=== PATIENT | female | born 2000 | race Hispanic/Latino ===

== ENCOUNTER 2021-02-01 21:18 | Emergency (ER) | payer OTHER ==
[~2021-02-01] VITALS: Ht 162.6 cm; Wt 104.8 kg
[2021-02-01] MEDS ORDERED: NAPROSYN500 MG PO (23:19)
[2021-02-01 23:24] VITALS: BP 137/69
== END 2021-02-01 23:53 | disposition home or self-care (01) ==
LOC: FSED 23:52
DX: R30.0 Dysuria (principal); R10.30 Lower abdominal pain, unspecified
CPT/HCPCS: 81003; 81025; 99283

== ENCOUNTER 2021-03-26 19:56 | Emergency (ER) | payer OTHER ==
[~2021-03-26] VITALS: Ht 162.6 cm; Wt 104.3 kg
[~2021-03-26 19:56] MED LIST: NAPROSYN500 MG PO
[2021-03-26] MEDS ORDERED: IBUPROFEN600 MG PO (21:44)
== END 2021-03-26 22:00 | disposition home or self-care (01) ==
LOC: FSED 20:25
DX: R10.30 Lower abdominal pain, unspecified (principal)
CPT/HCPCS: 74018; 81003; 81025; 99283

== ENCOUNTER 2023-05-17 18:06 | Emergency (ER) | payer SELFPAY ==
[~2023-05-17] VITALS: Ht 162.6 cm; Wt 104.3 kg
[~2023-05-17 18:06] MED LIST changes: +IBUPROFEN600 MG PO
[2023-05-17] MEDS ORDERED: DIPHENHYDRAMINE HCL INJ 50 MG/ML VIAL IV STA (18:24)
[2023-05-17] MEDS ORDERED: FAMOTIDINE 20 MG/2 ML VIAL IV STA (18:24)
[2023-05-17] MEDS ORDERED: METHYLPREDNISOLONE SOD SUCC 125 MG/2ML VIAL IV STA (18:24)
[2023-05-17] MEDS ORDERED: FLUORESCEIN SOD(OPTH) 1 MG STRP OP STA (18:28)
[2023-05-17] MEDS ORDERED: TETRACAINE HCL 0.5% OPTH SOLN 4 ML BTL ONE (18:45)
[2023-05-17] MEDS ORDERED: TETRACAINE HCL 0.5% OPTH SOLN 4 ML BTL OP ONE (19:00)
[2023-05-17] MEDS ORDERED: EPINEPHRIN0.15 MG/01 IM (19:26)
[2023-05-17] MEDS ORDERED: PEPCID20 MG PO (19:26)
[2023-05-17] MEDS ORDERED: PREDNISONE20 MG PO (19:26)
[2023-05-17 19:32] VITALS: BP 129/86; PULSE 80; RESP 16; O2SAT 100
== END 2023-05-17 19:34 | disposition home or self-care (01) ==
LOC: ER 18:12
DX: H10.12 Acute atopic conjunctivitis, left eye (principal); J31.0 Chronic rhinitis
CPT/HCPCS: 99283; J1200; J2930

== ENCOUNTER 2024-05-14 16:05 | Emergency (ER) | payer SELFPAY ==
[~2024-05-14] VITALS: Ht 162.6 cm; Wt 81.6 kg
[~2024-05-14 16:05] MED LIST changes: +EPINEPHRIN0.15 MG/01 IM; +PEPCID20 MG PO; +PREDNISONE20 MG PO
[2024-05-14 16:15] VITALS: TEMP 98.7
[2024-05-14 16:29] LABS: BASOPHILS % 0.6 % (0.0-1.0); EOSINOPHILS # (AUTO) 0.3 (0.0-0.4); EOSINOPHILS % 4.7 % (0.0-6.0); HEMATOCRIT 45.3 % (34.2-44.1); HEMOGLOBIN 14.8 g/dL (12.0-16.0); LYMPHOCYTES # (AUTO) 2.3 (1.0-3.2); LYMPHOCYTES % 36.5 % (18.0-39.1); MEAN CORPUSCULAR HEMOGLOBIN 30.3 pg (28-32); MEAN CORPUSCULAR HGB CONC 32.7 g/dL (31-35); MEAN CORPUSCULAR VOLUME 92.8 fL (81-99); MONOCYTES # (AUTO) 0.5 (0.2-0.8); MONOCYTES % 7.3 % (4.4-11.3); NEUTROPHILS # (AUTO) 3.2 (2.1-6.9); NEUTROPHILS % 50.7 % (38.7-80.0); PLATELET COUNT 197 x10e3/uL (140-360); RED BLOOD COUNT 4.88 x10e6/uL (3.6-5.1); RED CELL DISTRIBUTION WIDTH 11.9 % (11.7-14.4)
[2024-05-14] MEDS: ONDANSETRON HCL INJ 2MG/ML 2ML 2 MG/ML VIAL IV PRN (16:35)
[2024-05-14] MEDS: DICYCLOMINE HCL 20 MG/2 ML VIAL IM ONE (16:35)
[2024-05-14] MEDS: SODIUM CHLORIDE 0.9% 1000ML 1,000 ML IV STA (16:36)
[2024-05-14 16:48] LABS: ALBUMIN 4.3 g/dL (3.5-5.0); ALBUMIN/GLOBULIN RATIO 1.1 (0.8-2.0); ANION GAP 15.5 mmol/L (8-16); BILIRUBIN,TOTAL 0.9 mg/dL (0.2-1.2); CALCIUM 9.1 mg/dL (8.4-10.2); CREATININE, SERUM 0.87 mg/dL (0.57-1.11); POTASSIUM 3.5 mmol/L (3.5-5.1); TOTAL PROTEIN 8.2 g/dL (6.5-8.1)
[2024-05-14 17:02] LABS: BILIRUBIN,URINE NEGATIVE (NEGATIVE); CLARITY,URINE CLEAR (CLEAR); COLOR,URINE YELLOW (YELLOW); GLUCOSE, URINE NEGATIVE (NEGATIVE); KETONES,URINE NEGATIVE (NEGATIVE); LEUKOCYTE ESTERASE ,URINE NEGATIVE (NEGATIVE); NITRITE,URINE NEGATIVE (NEGATIVE); PH,URINE 6 (5 - 7); PROTEIN,URINE DIPSTICK NEGATIVE (NEGATIVE); URINE UROBILINOGEN 0.2 mg/dL (0.2 - 1)
[2024-05-14 17:04] LABS: WBC,URINE (MAN) 0-5 /HPF (0-5)
[2024-05-14 17:05] LABS: BACTERIA,URINE MANY /HPF; EPITHELIAL CELLS,URINE MANY /LPF; MUCUS,URINE FEW (RARE)
[2024-05-14] MEDS: KETOROLAC TROMETHAMINE 30 MG/ML VIAL IV STA (18:01)
[2024-05-14 18:05] VITALS: PULSE 90; RESP 16; O2SAT 97
[2024-05-14] MEDS ORDERED: OMEPRAZOLE40 MG PO (18:05)
[2024-05-14] MEDS ORDERED: ONDANSETRON ODT4 MG PO (18:05)
[2024-05-14] MEDS ORDERED: DICYCLOMINE HCL20 MG PO (18:05)
== END 2024-05-14 19:22 | disposition home or self-care (01) ==
LOC: ER 16:09
DX: R10.13 Epigastric pain (principal); R11.0 Nausea
CPT/HCPCS: 36415; 76705; 80053; 81001; 83690; 84702; 85025; 99283; J0500; J1885; J2405; J2470; J7030